=== PATIENT | male | born 1960 | race Caucasian/White ===

== ENCOUNTER 2019-04-13 07:35 | Emergency (ER) | payer MEDICARE ==
[~2019-04-13] VITALS: Ht 190.5 cm; Wt 88.5 kg
[2019-04-13] MEDS ORDERED: ACETAMINOPHEN500 MG PO (09:51)
== END 2019-04-13 09:57 | disposition home or self-care (01) ==
LOC: ER 07:35
DX: S81.002A Unspecified open wound, left knee, initial encounter (principal); S16.1XXA Strain of muscle, fascia and tendon at neck level, initial encounter; S00.83XA Contusion of other part of head, initial encounter; S80.212A Abrasion, left knee, initial encounter; W17.89XA Other fall from one level to another, initial encounter; Z87.891 Personal history of nicotine dependence
CPT/HCPCS: 70450; 72125; 99284-25; A9270